=== PATIENT | female | born 1995 | race Caucasian/White ===

== ENCOUNTER 2019-02-15 22:02 | Emergency (ER) | payer SELFPAY ==
[~2019-02-15] VITALS: Ht 167.6 cm; Wt 96.6 kg
--- NOTE | 2019-02-15 22:37 | NUR ---
IN TRIAGE, PT AND PT MOM GETTING FRUSTRATED WITH QUESTIONS, STATING "SHE WAS EXPOSED TO THE CHEMICALS DURING THE EXPLOSION TODAY BECAUSE SHE WAS OUTSIDE. YOU DONT KNOW WHAT YOU ARE TALKING ABOUT"
--- NOTE | 2019-02-15 23:00 | NUR ---
PT MOM CAME TO WINDOW AND STATED SHE WANTED TO SPEAK TO NURSE/DOCTOR; PT CALLED INTO TRIAGE WITH MOM AND ER MD; PT MOM ANGRILY STATES "WE ARE GOING TO LEAVE. YOU ARE GOING OT RELEASE HER AND WE WILL GO DOWNTOWN BECAUSE YOU DONT KNOW WHAT YOU ARE DOING. SHE WAS EXPOSED TO A DEADLY CHEMICAL AND YOU ARE DOING NOTHING FOR HER." PT AND PT MOM INFORMED THAT SHE WAS GOING TO BE PULLED INTO A ROOM TO BE EVALUATED FURTHER BY ER MD, BUT PT REFUSED STATING SHE WANTED TO JUST LEAVE. PT SIGNED AMA FORM AND FORM PLACED IN CHART. ER MD NOTIFIED AND AWARE
[2019-02-16] MEDS ORDERED: ONDANSETRON ODT8 MG PO (00:37)
== END 2019-02-15 23:00 | disposition left against medical advice (07) ==
LOC: EDBD → ER 22:02
DX: Z32.01 Encounter for pregnancy test, result positive (principal); R11.2 Nausea with vomiting, unspecified

== ENCOUNTER 2019-02-15 23:21 | Emergency (ER) | payer OTHER ==
[~2019-02-15] VITALS: Ht 167.6 cm; Wt 97.3 kg
[2019-02-15] MEDS ORDERED: ONDANSETRON HCL INJ 2MG/ML 2ML 2 MG/ML VIAL IV STA (23:45)
[2019-02-15] MEDS ORDERED: SODIUM CHLORIDE 0.9% 1000ML 1,000 ML IV ONE (23:45)
--- NOTE | 2019-02-16 00:15 | NUR ---
Dr. Dunham informed that IV is unobtainable on pt. Pt no longer needs IV as pt has positive test and this is the reason for her n/v. Pt wants to go after getting the results of the test. Pt given ODT zofran and PO challenge with ice chips.
--- NOTE | 2019-02-16 00:30 | NUR ---
Pt is tolerating PO ice chips with no n/v at this time.
[2019-02-16] MEDS ORDERED: ONDANSETRON ODT8 MG PO (00:37)
[2019-02-16] MEDS ORDERED: ONDANSETRON HCL 4 MG ORAL DISINTEGRATING TAB PO STA (00:53)
[2019-02-16 01:07] VITALS: BP 164/94
== END 2019-02-16 00:45 | disposition home or self-care (01) ==
LOC: FSED 23:21 → EDBD 23:21 → FSED 02-16 00:45
DX: Z32.01 Encounter for pregnancy test, result positive (principal); R11.2 Nausea with vomiting, unspecified
CPT/HCPCS: 81003; 81025; 99283; J7030